=== PATIENT | male | born 1975 | race Caucasian/White ===

== ENCOUNTER 2016-05-28 20:14 | Emergency (ER) | payer BC ==
[2016-05-29 02:02] LABS: HEMOGLOBIN 14.8 gm/dl (14.0-17.5); RED BLOOD COUNT 4.76 M/UL (4.20-5.50); WHITE BLOOD COUNT 7.1 K/UL (4.5-11.0)
[2016-05-29 02:21] LABS: BUN/CREATININE RATIO 10 (0-10)
== END 2016-05-29 03:05 | disposition left against medical advice (07) ==
LOC: ER1 20:14
PROVIDERS: Family Medicine
DX: Z53.21 Procedure and treatment not carried out due to patient leaving prior to being seen by health care provider (principal)
CPT/HCPCS: 71010; 80053; 82550; 82553; 83874; 84484; 85025; 93005